=== PATIENT | female | born 1980 | race Caucasian/White ===

== ENCOUNTER 2019-02-03 05:51 | Day surgery (SDC) | payer OTHER ==
[2019-02-03] MEDS: LACTATED RINGER'S 1,000 ML IV (07:01)
[2019-02-03] MEDS ORDERED: BACITRACIN/POLYMYXIN 28.35 GM OINT TOP (07:10)
[2019-02-03] MEDS ORDERED: BUPIVACAINE 0.5% (SDV) 30 ML INJ (07:10)
[2019-02-03] MEDS ORDERED: MEPERIDINE 100 MG INJ (07:28)
[2019-02-03] MEDS ORDERED: LIDOCAINE 2% (SDV) 5 ML INJ (07:28)
[2019-02-03] MEDS ORDERED: CEFAZOLIN 1 GM INJ (07:28)
[2019-02-03] MEDS ORDERED: PROPOFOL 20 ML (07:28)
[2019-02-03] MEDS ORDERED: MIDAZOLAM 1 MG/ML 2 ML INJ (07:44)
[2019-02-03] MEDS ORDERED: morphine 2 MG INJ IV (08:30)
[2019-02-03] MEDS ORDERED: ONDANSETRON 4 MG INJ (08:41)
[2019-02-03] MEDS ORDERED: METOCLOPRAMIDE 10 MG INJ (08:41)
[2019-02-03] MEDS: POLYMYXIN/BACITRACIN 1L IRRIG (08:58)
[2019-02-03] MEDS: ROPIVACAINE 0.5 % 30 ML VIAL (08:59)
[2019-02-03] MEDS ORDERED: FENTAnyl 50 MCG/ML VIAL IV ×2 (09:30)
[2019-02-03] MEDS ORDERED: LABETALOL HCL 20MG INJ IV (09:30)
[2019-02-03] MEDS ORDERED: OXYCODONE/ACETAMINOPHEN (5/325) TAB PO (09:30)
[2019-02-03] MEDS ORDERED: HYDROmorphONE 1 MG/5 ML IV SYRINGE IV (09:30)
[2019-02-03] MEDS ORDERED: hydrALAzine 20 MG INJ IV (09:30)
[2019-02-03] MEDS ORDERED: METOCLOPRAMIDE 10 MG INJ IV (09:30)
[2019-02-03] MEDS ORDERED: EPHEDrine 25 MG/5 ML SYG IV (09:30)
[2019-02-03] MEDS ORDERED: MIDAZOLAM 1 MG/ML 2 ML INJ IV (09:30)
[2019-02-03] MEDS ORDERED: DIPHENHYDRAMINE 50 MG INJ IV (09:30)
[2019-02-03] MEDS: ONDANSETRON 4 MG INJ IV (10:05)
[2019-02-03] MEDS: HYDROmorphONE 1 MG/5 ML IV SYRINGE IV ×2 (10:05→10:12)
[2019-02-03] MEDS: FENTAnyl 50 MCG/ML VIAL IV ×2 (10:06→10:12)
[2019-02-03] MEDS: KETOROLAC 30 MG INJ IV (10:09)
[2019-02-03] MEDS: MEPERIDINE 25 MG INJ IV (10:09)
[2019-02-03] MEDS: OXYCODONE/ACETAMINOPHEN (5/325) TAB PO (10:27)
== END 2019-02-03 11:23 | disposition home or self-care (01) ==
LOC: SDS 05:51
DX: M77.41 Metatarsalgia, right foot (principal)
CPT/HCPCS: 29999; 82306